=== PATIENT | male | born 1965 | race Hispanic/Latino ===

== ENCOUNTER 2017-09-14 05:54 | Day surgery (SDC) | payer BC ==
[2017-09-09 09:27] VITALS: BMI 30.1
[2017-09-14] MEDS ORDERED: Lactated Ringer's 1,000 ML IV ONE ×3 (07:20→17:26)
--- NOTE | 2017-09-14 07:24 | CP.SDSHP ---
Same Day Surgery H & P - History Proposed Procedure: Right shoulder arthroscopy, possible rotator cuff tear, acromioplasty Pre-Op Diagnosis: Right shoulder RC tear, AC joint arthropathy - Previous Medical/Surgical History Comments: [place] [employer] patient report reviewed, no CDS. Patient counseled on the risks of addiction, physical or psychological dependence, and overdose associated with opioid drugs and the danger of taking opioid drugs with alcohol and other central nervous system depressants, and cautioned patient on storage and disposal. Previous Surgical History: B carpal tunnel, left elbow - Allergies Allergies: Allergies banana Allergy (Verified 09/09/17 09:28) RASH Penicillins Allergy (Verified 09/09/17 09:27) RASH - Physical Exam Vital Signs: Vital Signs 09/14/17 06:42 Temperature 98 F Pulse Rate 98 H Respiratory 18 Rate Blood Pressure 135/62 O2 Sat by Pulse 97 Oximetry Mental Status: Alert & Oriented x3 Neuro: WNL Heart: WNL Lungs: WNL - {Optional Preform as Required} : Other (painful limited ROM, +radial pulse, sensation intact, skin intact, no erythema) Other Pertinent Findings: Right shoulderMRI moderate bursal sided tear within anterior supraspinatus tendon. , AC joint moderate degenerative changes,mild impingement of the acromial tip. 2.3 cm ganglion at infraspinatous - Impression Impression: 52M RHD with right shoulder RC tear, AC joint DJD for right shoulder arthroscopy Pt. Evaluated Today:Candidate for Anesthesia & Procedure: Yes - Date & Time Date: 09/14/17 Time: 07:57 Short Stay Discharge - Short Stay Discharge Admitting Diagnosis/Reason for Visit: M75.31 Disposition: HOME/ ROUTINE Medications: oxyCODONE/Acetaminophen [Percocet 5/325 mg Tab] 2 ea PO Q4H PRN #40 tab PRN Reason: Pain, Moderate (4-7) Referrals: David Pierson MD [Primary Care Provider] - Past Patient History - Past Medical History & Family History Past Medical History?: No - Past Social History Smoking Status: Former Smoker - CARDIAC Hx Cardiac Disorders: No - PULMONARY Hx Respiratory Disorders: No - NEUROLOGICAL Hx Neurological Disorder: No - HEENT Hx HEENT Problems: No - RENAL Hx Chronic Kidney Disease: No - ENDOCRINE/METABOLIC Hx Endocrine Disorders: No - HEMATOLOGICAL/ONCOLOGICAL Hx Blood Disorders: No - INTEGUMENTARY Hx Dermatological Problems: No - MUSCULOSKELETAL/RHEUMATOLOGICAL Hx Musculoskeletal Disorders: No - GASTROINTESTINAL Hx Gastrointestinal Disorders: No - GENITOURINARY/GYNECOLOGICAL Hx Genitourinary Disorders: No - PSYCHIATRIC Hx Psychophysiologic Disorder: No - SURGICAL HISTORY Hx Surgeries: Yes Hx Arthroscopy: Yes (left shoulder) Other/Comment: elizabeth carpal tunnel,elizabeth elbow repair,fx left leg-2015 - ANESTHESIA Hx Anesthesia: Yes Hx Anesthesia Reactions: No Hx Malignant Hyperthermia: No Has any member of the family had a problem w/ anesthesia?: No
[2017-09-14] MEDS ORDERED: Lidocaine 1% Inj (20ml) ONE (08:16)
[2017-09-14] MEDS ORDERED: ceFAZolin IV 1 gm in Dextrose 0 GM/0 ML BAG IVPB ONE (08:16)
[2017-09-14] MEDS ORDERED: Bacitracin Ointment 30 GM TUBE ONE (08:16)
[2017-09-14] MEDS ORDERED: Thrombin Topical 5,000 Int Units Spray Kit ONE (08:16)
[2017-09-14] MEDS ORDERED: Absorbable Gelatin Sponge Size 100 ONE (08:16)
[2017-09-14] MEDS ORDERED: Lidocaine 4% (Laryng-O-Jet) Kit MM ONE (09:53)
[2017-09-14] MEDS ORDERED: Succinylcholine 200 mg/10 ml Inj IV ONE (09:53)
[2017-09-14] MEDS ORDERED: Lidocaine 1% 5ml Abboject IV ONE (09:53)
[2017-09-14] MEDS ORDERED: Midazolam 2 MG/2 ML VIAL ONE (09:53)
[2017-09-14] MEDS ORDERED: Propofol 10 mg/ml Inj (20 ML) ONE (09:53)
[2017-09-14] MEDS ORDERED: Sevoflurane - Inhalation Anesthetic Liq (250 ml) ONE (09:57)
[2017-09-14] MEDS ORDERED: Ropivacaine 0.5% 30ML IV ONE (10:03)
[2017-09-14] MEDS ORDERED: Rocuronium 10 mg/ml (5 ml) ONE (15:19)
[2017-09-14] MEDS ORDERED: Neostigmine Methylsulfate 2 MG/2 ML ML IV ONE (15:22)
--- NOTE | 2017-09-14 16:13 | PCM.ANESB1 ---
Interscalene Block - Brachial Plexus Date of Procedure: 09/14/17 Anesthesiologist: Dr. Hidalgo Pre-Procedure Diagnosis: Right shoulder pain Post-Procedure Diagnosis: Right shoulder pain Procedure Performed: Interscalene Block of Brachial Plexus Right - Procedure Interscalene Block of Brachial Plexus: This procedure was explained to the patient that it is for post-operative pain management. Consent was obtained after a thorough discussion with the patient regarding the benefits and possible complications of local anesthetic block of the Brachial Plexus at the Interscalene area. The patient was brought to the Operating Room and standard monitors were applied. Time out was held with the circulating nurse to confirm the correct surgery and appropriate block. After applying Oxygen by nasal cannula and administering IV Sedation, the patient's head was gently rotated away from the right operative shoulder and the anterior scalene groove was carefully palpated. The ultrasound transducer was then applied to the skin in the transverse plane and the brachial plexus was visualized lateral to the carotid artery and in between the anterior and middle scalene muscles. After identification,the anterior lateral portion of the neck was prepped with Chloraprep solution and Lidocaine 1% was injected subcutaneously for topical analgesia. At this point, a # 22 gauge Stimuplex 2 inches insulated needle was inserted into the interscalene groove and directed in a caudal and midline direction. The needle was inserted lateral to the ultrasound transducer in-plane towards the brachial plexus in a [id number] direction. Needle advancement was performed carefully under direct ultrasound visualization. Nerve stimulator was used and twitched of the affected extremity including the hand brachialis muscles, biceps and the deltoid was obtained at a current of 0.3MA. After repeated negative aspiration,5cc of0.5% ropivacaine were injected and this was followed with 15cc of0.5% ropivacaine. Under ultrasound guidance the local anesthetics were observed surrounding the roots of the brachial plexus. The needle was removed intact and sterile dressing was applied. The patient had stable vital signs, was conscious and in no apparent distress. The patient tolerated the interscalene block of the bracheal plexus well with stable vital signs and was prepared for subsequent surgery.
[2017-09-14] MEDS ORDERED: Bacitracin OINT 15GM TOP ONE (17:15)
[2017-09-14] MEDS ORDERED: Dexamethasone 4 mg/1 ml IVP PRN (17:30)
[2017-09-14] MEDS ORDERED: HYDROmorphone 0.5 mg/0.5 ml ISec IVP PRN (17:30)
--- NOTE | 2017-09-14 17:38 | PCM.SURG1 ---
Surgeon's Initial Post Op Note - Surgeon's Notes Surgeon: Samantha Associate Professor Of Biostatistics: BLAINE Cantu Type of Anesthesia: General Endo, Block Regional Anesthesia Administered By: DR Ann/DR Hidalgo Pre-Operative Diagnosis: paiful R Shoulder Operative Findings: labral tear. biceps tendon avulsion. rotator cuff tear. A /C joint arthritis/subacromial impingement. bursitis/adhesios in subacromial space Post-Operative Diagnosis: as above Operation Performed: arthroscopic rotator cuff repair. arthroscopic intraarticular biceps tenodesis. arthroscopic labrsal repair. arthroscopic partial distal claviculectomy. arthroscopic acromioplasty. arthroscopic lysis of adhesions /partia;l bursectomy Specimen/Specimens Removed: cartilage/synovium bone Estimated Blood Loss: EBL {In ML}: 15 Blood Products Given: N/A Drains Used: No Drains Post-Op Condition: Good Date of Surgery/Procedure: 09/14/17 Time of Surgery/Procedure: 15:45 (time inroom/anaetshesia indcution time- 1435)
[2017-09-14 18:35] VITALS: RESP 18; O2SAT 97
[2017-09-14 19:20] VITALS: BP 146/85; PULSE 76; TEMP 97.6
--- NOTE | 2017-09-16 08:42 | OP ---
PROCEDURE DATE: 09/14/2017 PREOPERATIVE DIAGNOSIS: Painful right shoulder. POSTOPERATIVE DIAGNOSES: 1. Labral tear extending anteriorly. 2. Biceps tendon avulsion. 3. Grade 3 rotator cuff tear with intralaminar tear, acromioclavicular joint arthritis, subacromial impingement, bursitis, adhesions in the subacromial space. OPERATION PERFORMED: 1. Arthroscopic rotator cuff repair. 2. Arthroscopic intra-articular biceps tenodesis. 3. Arthroscopic labral repair. 4. Arthroscopic partial distal claviculectomy. 5. Arthroscopic lysis of adhesions in the subacromial space and partial bursectomy; application of shoulder immobilizer. SURGEON: Jerome Singh MD [employer] INSTALLER: STEFFEN Winter, certified registered nursing life science research assistant. TYPE OF ANESTHESIA: General and regional anesthesia. ANESTHESIA ADMINISTERED BY: David Ann MD and Johny Hidalgo MD OPERATIVE INDICATIONS: Walter Durand is a patient well-known to my practice, having undergone left shoulder surgery in the past. The patient has persistent pain, restricted range of motion of the right shoulder, has been refractory to conservative management consisting of intra-articular injection, activity modification and therapy. Pros, cons, risks and benefits of arthroscopic surgical approach were discussed. The possibility of mechanical failure, infection, thromboembolic disease, secondary or tertiary surgery was discussed. Possibility of later open procedure was discussed. OPERATIVE PROCEDURE: After having obtained informed consent in the above fashion, after the satisfactory induction of general and regional anesthesia by Dr. Ann and Dr. Hidalgo, after having identified side, site and procedure, and critical pause/time-out, the patient identified as Walter Durand in the modified hutchison-chair position. The right upper extremity was prepped and free draped in the usual fashion for upper extremity surgery. The topographic anatomy of the shoulder was marked, spine of scapula, lateral aspect of the acromion, coracoid process. The joint is insufflated with 10 mL of 1% lidocaine without epinephrine. Using #1 blade, followed by spreading and introduction of blunt trocar, the arthroscope was introduced. Examination of the joint commenced. There was found to be a good deal of synovitis. There was found to be a tear of the glenoid labrum, not a foramen ovale, but a tear of the glenoid labrum anteriorly. There was also found to be separation of the biceps tendon labral complex superiorly. Triangulation was accomplished using #18 gauge spinal needle, followed by #11 blade, taking great care to staying lateral on the coracoid process. The Wissinger tangela was introduced; the cannula was introduced. With the arthroscope posteriorly, extensive debridement of the glenohumeral joint was accomplished. There was found to be separation of the glenoid labrum anteriorly. With the arthroscope posteriorly, the Nitinol wire was placed. Triangulation was accomplished posterolaterally using #18 gauge spinal needle, followed by #11 blade, followed by spreading. With the arthroscope posteriorly, the Nitinol wire was brought up posteriorly having enveloped the tear of the glenoid labrum. The anterior aspect of the glenoid had been developed using the 3.4 mm Dyonics suction punch and the periosteum elevator. This having been accomplished, the strands of the fiber braid brought out anteriorly. Drilling was accomplished. The drill hole was debrided using the 3.4 mm Dyonics suction punch. The anchor was loaded. The anchor was impacted with tensioning of the anterior aspect of the glenoid labrum. This having been accomplished, the labrum was repaired in the above fashion. A thorough debridement of glenohumeral joint was accomplished. The posterior aspect of the labrum was found to be intact. The superior aspect of the biceps tendon labral complex was found to be avulsed. This having been accomplished, again using the lasso through the root of the biceps tendon. This having been accomplished, the Nitinol wire was brought out posteriorly. The fiber braid is loaded, again brought out anteriorly. Drilling was accomplished superiorly to the initial drill hole. The drill hole was debrided. The fiber lock anchor is and the fiber braid is introduced, and in this fashion, the intra-articular biceps tenodesis was accomplished. The wound was thoroughly irrigated. The arm was placed in dependency, the left shoulder was air-planed in left slightly and the arthroscope was placed in the subacromial space. There was an extreme amount of adhesions and bursitis. A so-called [place] portal was accomplished as well laterally to the acromion, followed by #11 blade, followed by spreading. With the arthroscope posteriorly, extensive debridement of the subacromial space was accomplished using a combination of the arthroscopic shaver and the CardioLogs surface wand. This is rather tedious and took some time, but a thorough debridement of the subacromial space was accomplished. The undersurface of the acromion is developed and there was found to be a tear of the rotator cuff. This having been accomplished, the tear which has an intralaminar component, was grasped using the cuff grasper and mobilized. This having been accomplished, the inverted V repair will be accomplished using the Scorpion. The fiber braid is deployed into the tendon; this was brought out and anteriorly. A second fiber braid is placed through the V fashion. These were both brought out anteriorly. The anterior portal was cleaned of all tissue, so as not to offer any tissue bridges. The anchor was loaded, it was impacted and then the anchor was introduced. The arm was placed in abduction and internal rotation, the rotator cuff was thus repaired. Position was found to be acceptable. A thorough debridement of the subacromial space was accomplished. Hemostasis controlled with the arthroscopic shaver and the Hernan wand. At this point in time, with the arthroscope posteriorly, from the anterior portal using the bur, a partial acromioplasty was accomplished. There was found to be defined spur at the acromion. Partial acromioplasty having been accomplished, the arthroscope was placed mid laterally. Debridement of the subacromial space continued in the area of the acromioclavicular joint. The acromioclavicular joint capsule was debrided. There was found to be evidence of AC joint arthropathy in the area of the acromioclavicular joint. With the arthroscope mid laterally using the arthroscopic bur, a partial distal claviculectomy was accomplished to approximately the distal 1 cm of the clavicle to include the articular cartilage. Partial acromioplasty having been accomplished, partial distal claviculectomy was accomplished as well to include the articular surface. The wound was thoroughly irrigated. Great care was taken to accomplish hemostasis using the arthroscopic wand, especially in the region of the acromioclavicular joint capsule and the subacromial space. The wound was thoroughly irrigated. Partial acromioplasty having been accomplished, partial distal claviculectomy having been accomplished, closures in layers with the arm in abduction and some internal rotation with interrupted Vicryl and nylon, compression dressing and shoulder abduction splint was applied. The operative goal could not be accomplished without the assistance of Cheyenne Peterson, certified registered nursing and life science research assistant. Jerome Singh MD
== END 2017-09-14 19:25 | disposition home or self-care (01) ==
LOC: H.OPSURG 05:54
PROVIDERS: ATTEND Orthopaedic Surgery
DX: M75.31 Calcific tendinitis of right shoulder (principal); S43.084A Other dislocation of right shoulder joint, initial encounter; M75.51 Bursitis of right shoulder; M75.41 Impingement syndrome of right shoulder
CPT/HCPCS: 29824; 29826; 29827; 88305; C1713; J0171; J0330; J2250; J2704; J2710; J2765; J3010; J7030; J7120